=== PATIENT | male | born 1970 | race Two or more races ===

== ENCOUNTER 2024-05-15 23:39 | Emergency (ER) | payer OTHER ==
[~2024-05-15] VITALS: Ht 177.8 cm; Wt 95.3 kg
[2024-05-15] MEDS ORDERED: AVAPRO75 MG PO (23:46)
[2024-05-16 00:06] VITALS: BP 170/90; O2SAT 98
[2024-05-16] MEDS ORDERED: hydrOXYzine PAMOATE 50 MG CAPSULE PO STA (00:24)
[2024-05-16 01:00] LABS: HEMATOCRIT 42.8 % (39.0-48.0); HEMOGLOBIN 14.8 g/dL (13-16.00); MEAN CELL VOLUME 87.6 fL (80.0-100.00); MEAN CORPUSCULAR HEMOGLOBIN 30.3 pg (27.00-32.0); MEAN CORPUSCULAR HGB CONC 34.5 g/dl (32.0-36.0); PLATELET COUNT 225 K/uL (150-450); RED BLOOD COUNT 4.88 M/uL (4.00-6.00); RED CELL DISTRIBUTION WIDTH 13.5 % (11.5-14.5)
[2024-05-16 01:15] LABS: BILIRUBIN TOTAL 0.37 mg/dL (0.3-1.2); CREATININE SERUM 1.43 mg/dL (0.70-1.30); GFR 51.34; GLOBULINA 4.1 G/DL (2.4-3.5); POTASSIUM 4.05 mEq/L (3.5-5.1); TOTAL PROTEIN 8.1 gm/dL (6.4-8.2)
== END 2024-05-16 02:44 ==
LOC: ER 23:42
PROVIDERS: General Practice
DX: R00.2 Palpitations (principal); I10 Essential (primary) hypertension; F41.9 Anxiety disorder, unspecified; Z88.6 Allergy status to analgesic agent